=== PATIENT | female | born 1965 | race Caucasian/White ===

== ENCOUNTER 2016-07-18 17:09 | Inpatient (IN) | payer MEDICARE, MEDICAID ==
[~2016-07-18] VITALS: Ht 160 cm; Wt 91.9 kg
[~2016-07-18 17:09] MED LIST: ASA CHILDREN'S81 MG PO; CLARITIN DPS10 MG PO; COUMADIN2.5 MG PO; COUMADIN4 MG PO; IMDUR DPS30 MG PO; LANTUS100 UNITS/ SQ; LIPITOR DPS20 MG PO; LISINOPRIL20 MG PO; METOPROLOL SUCC50 MG PO; NOVOLOG FL100 UNIT/1 SQ; PLAVIX75 MG PO; PROTONIX40 MG PO; TOPAMAX25 MG PO; WELLBUTRIN SR150 M1 PO
--- NOTE | 2016-07-21 08:25 | HP ---
ADMIT: 07/18/2016 RM/LOC: 623 [facility] MR#: [id number] 2620 [facility] [address] [place] [id number] DEANN DOMÍNGUEZ [address] [place] [address] History and Physical SEX: F AGE: 51 : 1965 DATE OF SERVICE: 07/19/2016 REASON FOR HOSPITALIZATION: DVT. HISTORY OF PRESENT ILLNESS: This is a 51-year-old, female patient, who transfers down by way of [facility] after developing tenderness and discomfort in her calf muscle. She was evaluated with ultrasound and in spite of being therapeutic with her Coumadin and on Plavix and aspirin, she has developed clot in the lower extremity. She does report she recently underwent PillCam evaluation as well as left temporal artery biopsy. In preparation for those procedures, she was off her Coumadin and Plavix for approximately 2 weeks. She feels that this was probably her main susceptibility to developing blood clots, although she does have a prior history of DVT and pulmonary embolism as well as history of CKD, diabetes mellitus type 2, coronary artery disease, coronary artery bypass surgery, metatarsal fracture, MRSA, reflux disease, gastritis, hypertension, interstitial nephritis secondary to Bactrim therapy, hyperlipidemia and again history of temporal arteritis and peripheral neuropathy. She has had recent shoulder and neck discomfort and headaches. I am sure the evaluation with temporal biopsy related to concerns about temporal arteritis and polymyalgia rheumatica, SOCIAL HISTORY: She quit smoking, does not use alcohol. FAMILY HISTORY: Noncontributory. MEDICATIONS: At the time of presentation include: 1. Aspirin. 2. Calcium. 3. Atorvastatin. 4. Claritin. 5. Coumadin. 6. Fluoxetine. 7. Biotin. 8. Imdur. 9. Lasix. 10.Lisinopril. 11.Metoprolol. 12.Multivitamin. 13.NovoLog sliding scale. 14.Omeprazole. 15.Plavix. 16.Spironolactone. 17.Lantus. 18.Vitamin B complex. 19.Vitamin D3. For specifics of dosing, please refer to her admission orders. REVIEW OF SYSTEMS: She has discomfort in her toes. She denies any chest pain or shortness of breath. She has neck discomfort, shoulder discomfort, and ADMIT: 07/18/2016 RM/LOC: 623 [facility] MR#: [id number] [address] [address] [place] [address] History and Physical SEX: F AGE: 51 : 1965 well-healing left temporal incision. She denies any shortness of breath at this time. PHYSICAL EXAMINATION: GENERAL: She is pleasant. She has some injection of the left conjunctiva. HEART: Regular. LUNGS: Clear. ABDOMEN: Soft. EXTREMITIES: She is tender in the left calf. There is some shiny skin. She has good color in her toes but diminished sensation. LABORATORY DATA: Her INR is 3.51. Her creatinine 1.6. Platelets 298,000. IMPRESSION: Deep-venous thrombosis, diabetes mellitus, history of gastritis, coronary artery disease, hypertension, peripheral neuropathy, recent discontinuation of Coumadin in preparation for temporal artery biopsy and PillCam. PLAN: We will have a Hematology consult, perform CTA of her chest. Watch her renal function closely. Continue her chronic management of diabetes and coronary artery disease, hypertension, etc. We will await Hematology is recommendations regarding changes of anticoagulant management. Ruben Gallardo DO/ teddy JOB #: [id number] CC: Joie Yancey, Attending Physician Vasyl J Alarcon, Family Physician
--- NOTE | 2016-07-21 08:25 | CO ---
ADMIT: 07/18/2016 RM/LOC: 623 [facility] MR#: [id number] 2620 [facility] [address] [place], [place] [address] DEANN DOMÍNGUEZ [address] [place] [address] Consultation SEX: F AGE: 51 : 1965 DATE OF CONSULTATION: 07/19/2016 ATTENDING PHYSICIAN: Joie Yancey CONSULTING PHYSICIAN: Rubén Arroyo MD REASON FOR CONSULTATION: Possible giant cell arteritis. HISTORY OF PRESENT ILLNESS: Ms. Domínguez is a very pleasant 51-year-old female with a past medical history significant for DVT/PE, poorly controlled diabetes mellitus, CKD, coronary artery disease status post CABG, MRSA, hypertension, in today for evaluation of a DVT. She was transferred down from [place]. She has had a PE and a DVT in the past, was on warfarin although this was discontinued for evaluations of headaches and left temporal artery biopsy. This was done approximately 2 weeks ago when she reports TA biopsy was negative. She states prior to that she had complained of 1-2 months of neck pain, muscle tightness of the upper back and headache, both in the temporal area as well as the occiput. She has significant visual changes that have been long standing over the last couple years related to her diabetes. She recently saw her eye doctor, and per her report, there is no evidence of GCA activity on her eye exam. She denies a history of new visual changes, jaw or tongue claudications or constitutional symptoms. I was asked to evaluate her as she continues to have ongoing daily neck, shoulder, and head pain. PAST MEDICAL HISTORY: 1. CKD stage 3. 2. History of DVT in her 20s as well as a PE approximately 2 years ago. 3. Poorly controlled diabetes mellitus type 2 of 30 years duration. 4. Coronary artery disease status post CABG 8 years ago. 5. History of MRSA infection. 6. GERD. 7. History of metatarsal fracture. 8. Gastritis. 9. Hypertension. 10.Interstitial nephritis secondary to Bactrim. 11.Hyperlipidemia. 12.Peripheral neuropathy. 13.Morbid obesity. ALLERGIES: TO MEDICATIONS WERE NOTED IN THE COMPUTER RECORD. SHE IS CURRENTLY NOT ON PREDNISONE. FAMILY HISTORY: She denies anybody with autoimmune or rheumatic disease. SOCIAL HISTORY: She quit tobacco in the past. She does not use alcohol. REVIEW OF SYSTEMS: As per the HPI, otherwise are reviewed and negative. OBJECTIVE: VITAL SIGNS: Blood pressure is 113/63, pulse 60, O2 saturation ADMIT: 07/18/2016 RM/LOC: 623 [facility] MR#: [id number] [address] [address] [place] [address] Consultation SEX: F AGE: 51 : 1965 98% on room air, and respirations are 16. GENERAL: She is a very pleasant in no acute distress. HEENT: Head atraumatic and normocephalic. No scleral icterus, conjunctival injection, or mucous membranes ulceration. She does not have any prominence over the temporal artery. She has a well-healed left temporal artery scar. HEART: Regular rate and rhythm. LUNGS: Clear. No crackles. EXTREMITIES: No peripheral edema or cyanosis. MUSCULOSKELETAL: No synovitis or erythema to the upper or lower extremities. Range of motion is normal. She has very poor posture. She is extremely tender to the trapezius muscles as they insert into the occiput as well as through the upper back. Her shoulders do roll forward. She has mild forward tilt of the head and flattening of the cervical spine. SKIN: Unremarkable. LAB AND X-RAY DATA: Pending. IMPRESSION: 1. Myalgias. 2. Headache. 3. Recent concern for giant cell arteritis with negative workup. PLAN: I do not see any evidence today of an autoimmune or inflammatory cause of her pain. I suspect this is due to her poor posture as well as her multiple comorbidities and deconditioning. We talked about her poor posture relating to her upper back pain as well as her headaches and likely some of the pain that has radiated into the jaw. We discussed the signs of polymyalgia rheumatica and temporal arteritis and she does not exhibit any today. I recommended an x-ray of her cervical spine to rule out significant degeneration and we will have physical therapy evaluate her. This work will need to continue with her primary care provider as an outpatient as she will likely need weeks of physical therapy followed by exercises on a daily basis. To help with some of her pain at the current time, I recommended Flexeril 10 mg at bedtime. I discussed with her that this is not an adequate pain pill for her with her other comorbidities. I will follow while she is in the hospital. Please feel free to call with any questions or concerns. Rubén Arroyo MD/ teddy JOB #: [id number] CC: Joie Yancey, Attending Physician Vasyl Alarcon, Family Physician
[2016-07-23] MEDS ORDERED: CALCIUM 600 +1 EAC6 PO (06:48)
[2016-07-23] MEDS ORDERED: PROZAC DPS10 MG PO (06:50)
[2016-07-23] MEDS ORDERED: LASIX DPS40 MG PO (06:51)
[2016-07-23] MEDS ORDERED: DAILY MULTIPLE1 EAC1 PO (06:54)
[2016-07-23] MEDS ORDERED: PRILOSEC DPS20 MG PO (06:54)
[2016-07-23] MEDS ORDERED: VITAMIN D-32000 UNI1 PO (06:55)
[2016-07-23] MEDS ORDERED: ALDACTONE DPS25 MG PO (06:55)
[2016-07-23] MEDS ORDERED: CARAFATE DPS1 GM PO (06:57)
[2016-07-23] MEDS ORDERED: FLEXERIL-DPS10 MG PO (06:57)
[2016-07-23] MEDS ORDERED: MAALOX DPS30 ML PO (06:59)
[2016-07-23] MEDS ORDERED: SURFAK DPS240 MG PO (06:59)
[2016-07-23] MEDS ORDERED: GI COCKTAIL PO (06:59)
[2016-07-23] MEDS ORDERED: TYLENOL DPS325 MG PO (07:00)
--- NOTE | 2016-07-24 16:06 | ER ---
ADMIT: 07/18/2016 RM/LOC: 623 [facility] MR#: [id number] 2620 [facility] [address] [place], [place] [address] DEANN DOMÍNGUEZ [address] [place] [address] Emergency Room Report SEX: F AGE: 51 : 1965 DATE: 07/18/2016 HISTORY OF PRESENT ILLNESS: She is from [place] via [place]. She comes in with pain and swelling on her left foot. She has neuropathic problems and apparently, she stubbed it, and she is unsure if she injured it, but she also has pain in her calf and she is concerned about a DVT. She has had a history of DVTs in the past, blood clots in her lungs, had left toe surgery due to MRSA. Also had renal failure, diabetes type 2, cardiac disease, and hypertension. She did have surgery and her left big toe looks much shorter than the rest of the toes due to the surgery. She also mentioned the fact that she had 8 stents as part of her surgical procedure and that mentioned left toe surgery. ALLERGIES: BACTRIM AND CELEBREX. MEDICATIONS: See T-sheet. PHYSICAL EXAMINATION: VITAL SIGNS: Blood pressure 153/75, heart rate is 59, respirations 18, temp is 96.0, O2 sats 100%. GENERAL: Mildly anxious. EXTREMITIES: There is some tenderness and swelling in the left toe. The gait is antalgic. She is oriented x4, but she does have in the lower extremity tenderness in her calf, no edema though and no erythema. BACK: Normal inspection. HEENT: Normal inspection. RESPIRATIONS: No distress. CVS: Regular in rate and rhythm. ABDOMEN: Obese, but nontender. LABORATORY DATA: On ultrasound, there is partially occluding DVT in the left leg. Her INR is 3.5, her BUN is 47, glucose is 116, creatinine is 1.6 with a ADMIT: 07/18/2016 RM/LOC: 623 [facility] MR#: [id number] 2620 [facility] [address] [place] [id number] DEANN DOMÍNGUEZ [address] [place] [address] Emergency Room Report SEX: F AGE: 51 : 1965 D-dimer 0.32. The GI cocktail was helpful when we gave it to her, she states she had some burning sensation in her gut. CLINICAL IMPRESSION: 1. Renal failure, which is chronic. 2. Diabetes type 2. 3. Fracture of distal metatarsal left toe, which is chronic. 4. Deep vein thrombosis of left leg, which is acute or new. PLAN: Dr. Yancey of [facility] was contacted, orders received, and patient will have consultation with Hematology. She will be admitted, awaiting orders. IDANIA Arreola / Manjit Kim MD / modl JOB #: [id number] CC: Joie Yancey MD, Attending Physician Vasyl Alarcon PA-C, Family Physician
--- NOTE | 2016-07-25 09:47 | CO ---
ADMIT: 07/18/2016 RM/LOC: 623 [facility] MR#: [id number] [address] [facility] [address] [place] [phone] DEANN DOMÍNGUEZ [address] [place] [address] Consultation SEX: F AGE: 51 : 1965 DATE OF CONSULTATION: 07/19/2016 ATTENDING PHYSICIAN: Joie Yancey MD CONSULTING PHYSICIAN: Rachid Whelan MD REASON FOR HEMATOLOGY CONSULTATION: Acute DVT, on Coumadin and Plavix. HISTORY OF PRESENT ILLNESS: Mrs. Domínguez is a 51-year-old pleasant female with multiple medical problems, was admitted to the hospital after ultrasound shows the possibly occlusive thrombus confined to the posterior tibial vein in the left lower extremities. When I saw the patient, she was on therapeutic INR. As per the patient, she had stopped for 2 weeks Coumadin and aspirin for biopsy for some sort of procedure and she thought that after that, she developed this painful swelling in the legs. No nausea. No vomiting. No diarrhea. No hypercoagulable workup has been done in the past. She denies any nausea or vomiting. Denies any diarrhea. She also denies any other problems. Currently, she is on Coumadin. PAST MEDICAL HISTORY: History of blood clot and DVT long time ago. She was on Coumadin for lifelong because of multiple DVT's in the past. FAMILY HISTORY: Noncontributory. MEDICATIONS: She is on: 1. Aspirin. 2. Coumadin. 3. Atorvastatin. SOCIAL HISTORY: She is currently not a smoker nor a drinker. No IV illicit drug use. FAMILY HISTORY: No family history of blood clots. Presence of high blood pressure and diabetes. ALLERGIES: NO KNOWN DRUG ALLERGIES. REVIEW OF SYMPTOMS: GENERAL: Not in acute distress. INFECTION: No fever. NUTRITION: Adequate. CARDIOVASCULAR: No chest pain. RESPIRATORY: No shortness of breath. GASTROINTESTINAL: No nausea. No vomiting. No diarrhea. GENITOURINARY: No urgency. No frequency. ENDOCRINOLOGY: No polyuria. No polydipsia. SKIN: No rashes. EXTREMITIES: Right leg is a little swollen and painful. PHYSICAL EXAMINATION: VITAL SIGNS: Temperature 98.3, pulse 60, respirations ADMIT: 07/18/2016 RM/LOC: 623 [facility] MR#: [id number] [address] [address] CATRACHITA DEANN [facility] [place] [address] Consultation SEX: F AGE: 51 : 1965 16, blood pressure 116/62. HEENT: Normocephalic, atraumatic. LUNGS: Clear. HEART: S1, S2 heard. Regular rate and rhythm. ABDOMEN: Soft, nontender, and nondistended. Positive bowel sounds. EXTREMITIES: Right leg is little tender to touch on her calf muscle as well as she has positive signs for DVT. NEUROLOGIC: Alert, awake, oriented x3. No focal neurological deficit. SKIN: No rashes. LABORATORY DATA: Ultrasound finding of her leg is noted. Blood tests: WBC is 9.4, hemoglobin is 13.1, platelet of 298. Normal kidney, normal LFTs. Her creatinine is 1.6 and stable. She may be little dehydrated. IMPRESSION AND RECOMMENDATIONS: DVT of her lower leg. As per the patient, she was off the anticoagulants for 2 weeks. That may be the reason for probable cause of DVT. She is back on heparin and Coumadin now. Her INR is around 4. She needs to have a target INR of 2. We will continue Coumadin, Plavix, and aspirin. The patient also needs a hypercoagulable workup as she never had a hypercoagulable state workup done in the past all in detail and probably it will take 2 weeks of time. I will follow the patient as an outpatient to discuss the test in detail. I have told the patient she can continue to be on Coumadin for now as probably the cause of her DVT was stopping the Coumadin for 2 weeks, but if in case in the future she develops the blood clot again on Coumadin, then she will probably need to change to either Lovenox or Xarelto, but for now, I will continue these drugs, continue to watch her closely, continue hypercoagulation workup, and follow up as an outpatient. I have spent 80 minutes of time, more than 50% of my time where we explained in reviewing her, discussing with the patient about the treatment plan, the blood tests that need to be done, and she understood very clearly. I thank you very much for your consultation and the opportunity in taking care of your patient. Rachid Whelan MD/ teddy JOB #: [id number] CC: Joie Yancey MD, Attending Physician Vasyl Alarcon PA-C, Family Physician
--- NOTE | 2016-11-26 08:09 | DS ---
ADMIT: 07/18/2016 RM/LOC: 623[facility] MR#: [id number] 2620 [facility] [address] [place], [place] [address] DEANN DOMÍNGUEZ [address] [address] General Discharge Summary SEX: F AGE: 51 : 1965 ADMISSION DATE: 07/18/2016 DISCHARGE DATE: 07/22/2016 REASON FOR HOSPITALIZATION: DVT. HISTORY: A 51-year-old female patient, transferred from [place] after developing tenderness and discomfort in her calf muscle, was evaluated with ultrasound and was found to have clot in her lower extremity in spite of being on Coumadin, Plavix, and aspirin combination therapy. She however had been off these therapies in preparation for a temporal artery biopsy which produced a window of susceptibility allowing her to develop clots. She does have a prior history of DVT and pulmonary embolism as well as a history of CKD, diabetes mellitus type 2, coronary disease status post coronary bypass surgery, MRSA, hypertension, interstitial nephritis secondary to Bactrim therapy, hyperlipidemia, and temporal arteritis. HOSPITAL COURSE: She was admitted through the emergency room and started on insulin sliding scale protocol. We did ask for Hematology to consult and assist with management of her recurrent DVT and history of pulmonary embolism/hypercoagulable workup. They performed a series of evaluations including antithrombin III levels, fibrinogen level, factor VIII level, lupus anticoagulant, protein C, and Factor V Leiden mutation. We also asked for Rheumatology consultation and assistance with her temporal arteritis management. She was started on Coumadin, and aspirin and Plavix were resumed. By 07/22/2016, she was stable and her INR was therapeutic. She was felt appropriate for dismissal with a final diagnoses of: 1. Deep vein thrombosis. 2. Diabetes mellitus. 3. Fibromyalgia. 4. Axillary nodule. She was to follow up with Vasyl Alarcon PA-C, in [place] in 1-2 weeks and receive physical therapy per Dr. Arroyo's orders and recommendations. She is to have an INR in 5 to 7 days, and follow up with Dr. Whelan in the Hematology Clinic. She was dismissed on: 1. Aldactone. 2. Aspirin 81 mg daily. 3. Caltrate. 4. Carafate. 5. Claritin. ADMIT: 07/18/2016 RM/LOC: 623[facility] MR#: [id number] 2620 [facility] [address] [place] [phone] DEANN DOMÍNGUEZ [address] [place] [address] General Discharge Summary SEX: F AGE: 51 : 1965 6. Coumadin 2.5 mg daily. 7. Flexeril. 8. Imdur. 9. Lasix. 10.Lipitor. 11.Plavix 75 mg p.o. daily. 12.Protonix. 13.Prozac. 14.Therapeutic multivitamin. 15.Toprol. 16.Vitamin D. 17.Zestril. 18.Levemir. 19.NovoLog sliding scale. Ruben Gallardo DO/ modl JOB #: [id number] CC:
== END 2016-07-22 15:10 | disposition home or self-care (01) | DRG 301 ==
LOC: ER 17:09 → 6PED 21:00
PROVIDERS: ADMIT Internal Medicine
DX: I82.442 Acute embolism and thrombosis of left tibial vein (principal); E11.22 Type 2 diabetes mellitus with diabetic chronic kidney disease; E11.42 Type 2 diabetes mellitus with diabetic polyneuropathy; E11.65 Type 2 diabetes mellitus with hyperglycemia; N18.3 Chronic kidney disease, stage 3 (moderate); E66.01 Morbid (severe) obesity due to excess calories; R22.9 Localized swelling, mass and lump, unspecified; I12.9 Hypertensive chronic kidney disease with stage 1 through stage 4 chronic kidney disease, or unspecified chronic kidney disease; M79.7 Fibromyalgia; K29.70 Gastritis, unspecified, without bleeding; R51 Headache; K21.9 Gastro-esophageal reflux disease without esophagitis; E78.5 Hyperlipidemia, unspecified; I25.10 Atherosclerotic heart disease of native coronary artery without angina pectoris; Z87.891 Personal history of nicotine dependence; Z86.718 Personal history of other venous thrombosis and embolism; Z86.711 Personal history of pulmonary embolism; Z86.14 Personal history of Methicillin resistant Staphylococcus aureus infection; Z79.01 Long term (current) use of anticoagulants; Z95.1 Presence of aortocoronary bypass graft; Z79.4 Long term (current) use of insulin; Z79.82 Long term (current) use of aspirin; Z87.81 Personal history of (healed) traumatic fracture

== ENCOUNTER → 2016-07-30 | Outpatient (CLI) | payer MEDICARE, MEDICAID ==
[~2016-07-30] MED LIST changes: +ALDACTONE DPS25 MG PO; +CALCIUM 600 +1 EAC6 PO; +CARAFATE DPS1 GM PO; +DAILY MULTIPLE1 EAC1 PO; +FLEXERIL-DPS10 MG PO; +GI COCKTAIL PO; +LASIX DPS40 MG PO; +MAALOX DPS30 ML PO; +PRILOSEC DPS20 MG PO; +PROZAC DPS10 MG PO; +SURFAK DPS240 MG PO; +TYLENOL DPS325 MG PO; +VITAMIN D-32000 UNI1 PO
== END | disposition home or self-care (01) ==
LOC: RAD.S 15:40
DX: Z12.31 Encounter for screening mammogram for malignant neoplasm of breast (principal); R92.1 Mammographic calcification found on diagnostic imaging of breast; I82.442 Acute embolism and thrombosis of left tibial vein; M79.89 Other specified soft tissue disorders; M79.605 Pain in left leg

== ENCOUNTER → 2016-08-13 | Outpatient (CLI) | payer MEDICARE, MEDICAID | END | disposition home or self-care (01) | LOC: RAD.S 09:10 → EDSTATUS 09:30 → RAD.S 09:30 | PROC: 07B53ZX Excision of Right Axillary Lymphatic, Percutaneous Approach, Diagnostic (ICD-10-PCS; principal; 2016-08-13) | DX: R22.31 Localized swelling, mass and lump, right upper limb (principal) ==

== ENCOUNTER 2016-09-26 13:42 | Emergency (ER) | payer MEDICARE, MEDICAID ==
--- NOTE | 2016-09-29 16:00 | ER ---
ADMIT: 09/26/2016 RM/LOC: ER [facility] MR#: [id number] [address] [address] DEANN DOMÍNGUEZ [address] [address] Emergency Room Report SEX: F AGE: 51 : 1965 DATE: 09/26/2016 BRIEF ADDENDUM: Please see my T-sheet for complete review of systems, past medical history, and physical exam. CHIEF COMPLAINT: Today is nausea and vomiting. HISTORY OF PRESENT ILLNESS: This is a pleasant 51-year-old white female, who presents to the ED with 2 days duration of nausea and vomiting. The patient states she has vomited about 4 times today. She is unable to keep her medications down and she is supposed to be on quite a few medications for cardiac disease as well as diabetes and blood thinners for recurrent DVT, PE. Admits to some epigastric burning, abdominal pain similar to her attacks of GERD and gastritis in the past. Has not taken any medications for the past 2 days at this point. Denies any diarrhea at this point. No blood in her vomit or stools. No fevers, chest pains, cough, shortness of breath, or problems urinating. COURSE IN THE EMERGENCY ROOM: GENERAL: The patient was seen and examined. She is afebrile and nontoxic. She is in no acute distress. HEENT: She does have some right subconjunctival hemorrhaging. She did have a cataract surgery done about a week ago, likely secondary to retching from the vomiting. No changes in vision at this point. NECK: Soft and supple. RESPIRATORY: No respiratory distress. HEART: Regular. ABDOMEN: Does have some epigastric tenderness to palpation. No guarding or rebound. No McBurney's point tenderness. Overall unremarkable abdominal exam. No CVA tenderness. SKIN: Warm and dry. EXTREMITIES: Nontender. No pedal edema. NEUROLOGICAL: She is alert, oriented, appropriate, and cooperative with exam. LABORATORY DATA: CBC white count 14.9, hemoglobin 13.4, hematocrit 41.3, platelets 328. Chemistry sodium 142, potassium 4.0, BUN 27, glucose 318, creatinine 1.6. She does have known chronic kidney disease. Lipase was 54. Liver enzymes unremarkable. UA, no signs of infection. She is spilling protein and glucose into her urine secondary to her diabetes and chronic kidney disease as above. Did start her on normal saline bolus today as well as Zofran for nausea. States this did immediately improve her nausea. Did give her a GI cocktail, which she states mildly improved her pain, however, she continues to complain of epigastric burning pain. IMPRESSION: 1. Acute gastritis. 2. Nausea and vomiting. 3. Type 2 diabetes mellitus, poor control. 4. Chronic kidney disease. ADMIT: 09/26/2016 RM/LOC: [facility] MR#: [id number] [address] [place] [phone] DEANN DOMÍNGUEZ [address] [place] [address] Emergency Room Report SEX: F AGE: 51 : 1965 DISPOSITION: The patient did tell me that she stopped taking her omeprazole sometime ago. She was having an upcoming EGD. She never did resume this medication. She has been using Zantac over the counter b.i.d. since that time. I did encourage her to restart her omeprazole 20 mg p.o. b.i.d. I will also give her a script for Zofran 4 mg ODT 1 tab sublingually every 8 hours as needed for nausea, #21. I encouraged her to continue to push fluids. She does need to return home and get started back on her medications as she does have a history of recurrent unprovoked DVT and PEs, and she has not been taking her blood thinners. Return with worsening signs or symptoms or follow up with [facility]. Tylenol as needed for pain. Questions sought and answered to best of my ability and to the patient's satisfaction. Discharged in stable condition. IDANIA Gray / Pierce Carter MD / teddy JOB #: [id number] CC: Pierce Carter MD, Attending Physician Vasyl Alarcon PA-C, Family Physician
== END 2016-09-26 16:10 | disposition home or self-care (01) ==
LOC: ER 13:42
DX: K29.00 Acute gastritis without bleeding (principal); R11.2 Nausea with vomiting, unspecified; E11.9 Type 2 diabetes mellitus without complications; I12.9 Hypertensive chronic kidney disease with stage 1 through stage 4 chronic kidney disease, or unspecified chronic kidney disease; N18.9 Chronic kidney disease, unspecified; I25.10 Atherosclerotic heart disease of native coronary artery without angina pectoris; E78.5 Hyperlipidemia, unspecified; Z88.1 Allergy status to other antibiotic agents; Z88.6 Allergy status to analgesic agent; Z79.82 Long term (current) use of aspirin; Z79.4 Long term (current) use of insulin; Z79.01 Long term (current) use of anticoagulants; Z79.899 Other long term (current) drug therapy